=== PATIENT | male | born 1995 | race Two or more races ===

== ENCOUNTER 2020-07-03 19:17 | Emergency (ER) | payer OTHER ==
[~2020-07-03] VITALS: Ht 180.3 cm; Wt 104.3 kg
[2020-07-03] MEDS ORDERED: KETOROLAC TROMETH 60MG/2ML VIAL IM ONE (22:30)
[2020-07-03 22:49] VITALS: BP 136/96
== END 2020-07-03 23:03 | disposition home or self-care (01) ==
LOC: ER 19:17
DX: S83.91XA Sprain of unspecified site of right knee, initial encounter (principal); X58.XXXA Exposure to other specified factors, initial encounter; Y93.89 Activity, other specified; Y92.89 Other specified places as the place of occurrence of the external cause; Y99.8 Other external cause status
CPT/HCPCS: 29505; 73560; 96372; 99283; J1885